=== PATIENT | female | born 1965 | race Caucasian/White ===

== ENCOUNTER 2021-10-10 11:00 | Emergency (ER) | payer OTHER ==
[~2021-10-10 11:00] MED LIST: BENADRYL25 MG PO; PREDNISONE50 MG PO
[2021-10-10 12:57] LABS: BASOPHIL 0.9 % (0-2); EOSINOPHIL 0.9 % (0-5); HCT 41.2 % (37.0-47.0); LYMPHOCYTE 31.2 % (15-48); MCH 28.1 pg (25.0-31.0); MCHC 31.6 g/dL (32.0-36.0); MCV 89.2 fL (78.0-100.0); MONOCYTE 8.2 % (0-12); MPV 11.6 fL (6.0-9.5); NEUTROPHIL 58.5 % (41-80); NRBC 0; PLT 281 K/uL (150-400); RBC 4.62 M/uL (4.20-5.40); RDW 14.1 % (11.5-14.0); WBC 6.9 K/uL (4.0-10.5)
[2021-10-10 13:01] LABS: INR 0.93 (0.9-1.2); PROTHROMBIN TIME 12.2 SECONDS (11.9-13.9); PTT 26.3 SECONDS (24.9-34.6)
[2021-10-10 13:11] LABS: ALBUMIN 3.7 g/dL (3.4-5.0); BILIRUBIN - TOTAL 0.3 mg/dL (0.2-1.0); BUN/CREAT RATIO (CALC) 9.9 RATIO; CREATININE 0.91 mg/dL (0.51-0.95); GLOBULIN (CALCULATION) 3.6 g/dL; POTASSIUM 3.8 mmol/L (3.5-5.1); TOTAL PROTEIN 7.3 g/dL (6.4-8.2)
== END 2021-10-10 16:56 | disposition home or self-care (01) ==
LOC: FER 11:00
PROVIDERS: Emergency Medicine
DX: R07.89 Other chest pain (principal); M94.0 Chondrocostal junction syndrome [Tietze]; I10 Essential (primary) hypertension; F17.210 Nicotine dependence, cigarettes, uncomplicated; Z88.5 Allergy status to narcotic agent; Z88.0 Allergy status to penicillin; Z88.1 Allergy status to other antibiotic agents; Z79.899 Other long term (current) drug therapy; Z28.310 Unvaccinated for COVID-19
CPT/HCPCS: 36415; 71046; 80053; 84484; 85025; 85610; 85730; 93005; 96372; J1100; J1885